=== PATIENT | female | born 1945 | race Caucasian/White ===

== ENCOUNTER 2017-07-24 10:43 | Observation (INO) | payer OTHER ==
[2017-07-24] VITALS (9 sets, daily range): BP systolic 115–218; BP diastolic 54–88; PULSE 73–99; RESP 16–20; TEMP 97.1–98.6; O2SAT 94–100
[~2017-07-24] VITALS: Ht 165.1 cm; Wt 122.0 kg
[~2017-07-24 10:43] MED LIST: CARD120T4 PO; D31000CA PO; HYDR-2768 PO; IBUP800 PO; IRON18TA2 PO; LISI-363 PO; LOMO PO; LOPE2 PO; LORTA5 PO; METF500 PO; POTA-243 PO
[2017-07-24 10:56] LABS: AUTOMATED NEUTROPHIL # 4.2 TH/MM3 (1.8-7.7); BASOPHIL % 0.6 % (0.0-2.0); EOSINOPHIL # 0.1 TH/MM3 (0-0.4); EOSINOPHIL % 1.5 % (0.0-4.0); HEMATOCRIT 36.2 % (35.0-46.0); HEMOGLOBIN 12.2 GM/DL (11.6-15.3); LYMPH % 27.4 % (9.0-44.0); LYMPHOCYTE # 1.8 TH/MM3 (1.0-4.8); MEAN CELL VOLUME 85.2 FL (80.0-100.0); MEAN CORPUSCULAR HEMOGLOBIN 28.8 PG (27.0-34.0); MEAN CORPUSCULAR HGB CONC 33.8 % (32.0-36.0); MEAN PLATELET VOLUME 9.6 FL (7.0-11.0); MONO % 6.8 % (0.0-8.0); MONOCYTE # 0.4 TH/MM3 (0-0.9); NEUT % 63.7 % (16.0-70.0); PLATELET COUNT 255 TH/MM3 (150-450); RED BLOOD COUNT 4.24 MIL/MM3 (4.00-5.30); RED CELL DISTRIBUTION WIDTH 12.8 % (11.6-17.2); WHITE BLOOD COUNT 6.5 TH/MM3 (4.0-11.0)
[2017-07-24 11:02] LABS: CHLORIDE 100 MEQ/L (98-107); SODIUM (NA) 136 MEQ/L (136-145)
[2017-07-24 11:04] LABS: CALCIUM 9.3 MG/DL (8.5-10.1)
[2017-07-24 11:05] LABS: BLOOD UREA NITROGEN 25 MG/DL (7-18); GLUCOSE,RANDOM 132 MG/DL (74-106)
[2017-07-24 11:06] LABS: BICARBONATE 26.2 MEQ/L (21.0-32.0)
--- NOTE | 2017-07-24 11:06 | RADRPT ---
EXAM DATE/TIME: 07/24/2017 10:55 [place] COMPARISON: No previous studies available for comparison. INDICATIONS : Chest pain and shortness of breath MEDICAL HISTORY : Hypertension. Diabetes mellitus type II. Anemia, Irregular heartbeat SURGICAL HISTORY : Cholecystectomy. ENCOUNTER: Initial ACUITY: 2 days PAIN SCORE: 0/10 LOCATION: Bilateral chest FINDINGS: A single view of the chest demonstrates the lungs to be symmetrically aerated without evidence of mas s, infiltrate or effusion. The cardiomediastinal contours are unremarkable. Osseous structures are intact. CONCLUSION: No acute disease. Elio Coleman MD FACR on July 24, 2017 at 11:03 Board Certified Radiologist. This report was verified electronically.
[2017-07-24 11:08] LABS: GLOMERULAR FILTRATION RATE 44 ML/MIN (>89)
[2017-07-24 11:13] LABS: TROPONIN I LESS THAN 0.02 NG/ML (0.02-0.05)
[2017-07-24] MEDS ORDERED: LORazepam 2 MG/ML VIAL IV PUSH SCH ×2 (11:30)
[2017-07-24] MEDS ORDERED: ASPIRIN 81 MG CHEW TAB CHEW ONE ×2 (11:30)
--- NOTE | 2017-07-24 11:34 | PD ---
HPI . Chest pain shortness of breath Chief Complaint: Chest Pain Time Seen by Provider: 11:00 Travel History International Travel<30 days: No Contact w/Intl Traveler<30days: No Traveled to known affect area: No History of Present Illness HPI Patient presents with a chief complaint of chest pain shortness of breath. Symptoms have been persistent but have waxed and waned for the last several days. She states that the symptoms started after the of her older sister. She reports that her sister is due to be today and [place]. She has not noticed any relieving factors. Exacerbating factors include salt and caffeine. When asked to describe the quality of her discomfort she states that she is just "out of breath." She is unable to further characterize her symptoms. She reports the severity of her symptoms as 8/10. Associated symptoms include diarrhea, palpitations, nausea and insomnia PFSH Past Medical History Anemia: Yes Arthritis: Yes (BILATERAL HIPS, knees, hands) Anxiety: Yes Depression: Yes Heart Rhythm Problems: Yes Cancer: No Cardiac Catheterization: No Cardiovascular Problems: Yes (htn on meds) Congestive Heart Failure: No Diabetes: Yes Patient Takes Glucophage: Yes Diminished Hearing: No Endocrine: No Gastrointestinal Disorders: Yes (CHRONIC DIAHREA) GERD: Yes Genitourinary: No Hypertension: Yes Immune Disorder: No Musculoskeletal: Yes Neurologic: No Psychiatric: No Reproductive: No Respiratory: No Immunizations Current: Yes Myocardial Infarction: No Tetanus Vaccination: < 5 Years Influenza Vaccination: Yes ?: Not Menopausal: Yes Past Surgical History Cholecystectomy: Yes (1986) Coronary Artery Bypass Graft: No Other Surgery: Yes Family History Family Myocardial Infarction: Yes Social History Alcohol Use: No Tobacco Use: No Substance Use: No Allergies-Medications (Allergen,Severity, Reaction): Coded Allergies: latex (Unverified Allergy, Severe, 07/24/17) epinephrine (Unverified Allergy, Mild, HEART RACES , 07/24/17) Reported Meds & Prescriptions Reported Meds & Active Scripts Active Reported Aspirin EC (Aspirin) 81 Mg Tabdr 162 Mg PO DAILY Lomotil (Diphenoxylate-Atropine) 2.5-0.025 Mg Tab 2 Tab PO DIRECTED PRN Loperamide (Loperamide HCl) 2 Mg Tablet 2 Mg PO PRN Vitamin D3 (Cholecalciferol) 1,000 Unit Cap 1,000 Units DAILY Diltiazem (Diltiazem HCl) Unknown Strength Tab Unknown Dose PO BID Potassium Chloride ER (Potassium Chloride) 10 Meq Cap 10 Meq PO DAILY Ferrous Fumarate Unknown Strength Tab Unknown Dose PO DAILY Losartan (Losartan Potassium) 100 Mg Tab 100 Mg PO DAILY Metformin (Metformin HCl) 500 Mg Tab 500 Mg PO HS With a meal Review of Systems Except as stated in HPI: all other systems reviewed are Neg General / Constitutional: No: Fever, Chills Eyes: No: Blurred Vision HENT: No: Headaches Cardiovascular: Positive: Chest Pain or Discomfort, Palpitations Respiratory: Positive: Shortness of Breath Gastrointestinal: Positive: Nausea, Diarrhea Psychiatric: Positive: Other (Insomnia) Physical Exam Narrative GENERAL: Obese woman who looks sad. SKIN: warm/dry. Normal color and turgor. HEAD: Normocephalic. Atraumatic. EYES: Pupils equal and round. No scleral icterus. No injection or drainage. ENT: No nasal bleeding or discharge. Mucous membranes pink and moist. NECK: Trachea midline. Full range of motion without pain.. CARDIOVASCULAR: Regular rate and rhythm. Heart sounds are normal. RESPIRATORY: No accessory muscle use. Clear to auscultation. Breath sounds equal bilaterally. GASTROINTESTINAL: Abdomen soft. Nontender. Bowel sounds present. Nondistended. MUSCULOSKELETAL: No obvious deformities. No peripheral edema. NEUROLOGICAL: Awake and alert. No obvious cranial nerve deficits. Motor grossly within normal limits. Normal speech. PSYCHIATRIC: Appropriate mood and affect; insight and judgment normal. Data Data Last Documented VS Vital Signs Date Time Temp Pulse Resp B/P (MAP) Pulse Ox O2 Delivery O2 Flow Rate FiO2 07/24/17 12:09 73 16 115/54 (74) 97 Room Air 07/24/17 11:08 2.00 07/24/17 10:50 98.6 Orders Orders Electrocardiogram (07/24/17 10:45) Complete Blood Count With Diff (07/24/17 10:45) Basic Metabolic Panel (Bmp) (07/24/17 10:45) Ckmb (Isoenzyme) Profile (07/24/17 10:45) Troponin I (07/24/17 10:45) Chest, Single Ap (07/24/17 10:45) Iv Access Insert/Monitor (07/24/17 10:45) Ecg Monitoring (07/24/17 10:45) Oxygen Administration (07/24/17 10:45) Oximetry (07/24/17 10:45) Lorazepam Inj (Ativan Inj) (07/24/17 11:30) Aspirin Chew (Aspirin Chew) (07/24/17 11:30) Aspirin Chew (Aspirin Chew) (07/24/17 11:30) Lorazepam Inj (Ativan Inj) (07/24/17 11:30) Place In Observation (07/24/17 ) Vital Signs (Adult) SIENNA.Q4H (07/24/17 12:18) Activity Bed Rest (07/24/17 12:18) Alley Worker / Telemetry SIENNA.Q8H (07/24/17 12:18) Diet Npo (07/24/17 Lunch) Troponin I (07/24/17 15:30) Labs Laboratory Tests Test 07/24/17 10:50 White Blood Count 6.5 TH/MM3 Red Blood Count 4.24 MIL/MM3 Hemoglobin 12.2 GM/DL Hematocrit 36.2 % Mean Corpuscular Volume 85.2 FL Mean Corpuscular Hemoglobin 28.8 PG Mean Corpuscular Hemoglobin Concent 33.8 % Red Cell Distribution Width 12.8 % Platelet Count 255 TH/MM3 Mean Platelet Volume 9.6 FL Neutrophils (%) (Auto) 63.7 % Lymphocytes (%) (Auto) 27.4 % Monocytes (%) (Auto) 6.8 % Eosinophils (%) (Auto) 1.5 % Basophils (%) (Auto) 0.6 % Neutrophils # (Auto) 4.2 TH/MM3 Lymphocytes # (Auto) 1.8 TH/MM3 Monocytes # (Auto) 0.4 TH/MM3 Eosinophils # (Auto) 0.1 TH/MM3 Basophils # (Auto) 0.0 TH/MM3 CBC Comment DIFF FINAL Differential Comment Blood Urea Nitrogen 25 MG/DL Creatinine 1.20 MG/DL Random Glucose 132 MG/DL Calcium Level 9.3 MG/DL Sodium Level 136 MEQ/L Potassium Level 3.6 MEQ/L Chloride Level 100 MEQ/L Carbon Dioxide Level 26.2 MEQ/L Anion Gap 10 MEQ/L Estimat Glomerular Filtration Rate 44 ML/MIN Total Creatine Kinase 66 U/L Troponin I LESS THAN 0.02 NG/ML MDM Medical Decision Making Medical Screen Exam Complete: Yes Emergency Medical Condition: Yes Medical Record Reviewed: Yes (PMH of DM, HTN, goiter, obesity) Interpretation(s) EKG shows a normal sinus rhythm with no acute ischemic changes. EKG is unchanged from previous. Differential Diagnosis Differential diagnosis of chest pain includes but is not limited to musculoskeletal pain, pulmonary embolism, acute coronary syndrome, pneumonia, pleurisy Differential diagnosis of dyspnea includes but is not limited to congestive heart failure, pneumonia, wheezing, pneumothorax, pulmonary embolism Narrative Course This patient presents with chest pain shortness of breath which have waxed and waned since the of her sister several days ago. Associated symptoms include palpitations, nausea, insomnia and loose stools. I suspect that her symptoms are secondary to mourning. Cardiac workup is in process. Last Impressions Chest X-Ray 07/24/17 1045 Signed Impressions: Service Date/Time: Monday, July 24, 2017 10:55 - CONCLUSION: No acute disease. Elio Coleman MD FACR The chest x-ray was independently reviewed by me. CBC & BMP Diagram 07/24/17 10:50 Calcium Level 9.3 Troponin less than 0.02. I have ordered aspirin and Ativan and will reassess. Patient states that she is sleepy and relaxed feeling that that she continues to have chest pain, back pain and shortness of breath. I have offered admission to the chest pain center.. She is interested in pursuing that. Physician Communication Physician Communication Dr. Galarza. The patient has been NPO today so will be stressed today. Diagnosis Primary Impression: Chest pain Qualified Codes: R07.9 - Chest pain, unspecified Additional Impressions: Dyspnea Qualified Codes: R06.00 - Dyspnea, unspecified Mourning Admitting Information Admitting Physician Requests: Observation Condition: Stable Natividad Banda MD Jul 24, 2017 11:34
[2017-07-24] MEDS ORDERED: CHOL10008 (12:03)
[2017-07-24] MEDS ORDERED: DILT120T PO (12:03)
[2017-07-24] MEDS ORDERED: FERR324T8 PO (12:03)
[2017-07-24] MEDS ORDERED: LOSA100T PO (12:03)
[2017-07-24] MEDS ORDERED: LOPE2TAB21 PO (12:03)
[2017-07-24] MEDS ORDERED: LOMO2.5T PO (12:03)
[2017-07-24] MEDS ORDERED: METF500T PO (12:03)
[2017-07-24] MEDS ORDERED: POTA10CA PO (12:03)
[2017-07-24] MEDS ORDERED: ASPI81TA23 PO (12:08)
[2017-07-24] MEDS ORDERED: TEMAZEPAM 15 MG CAP PO PRN (13:45)
[2017-07-24] MEDS ORDERED: NITROGLYCERIN 0.4 MG SL 25 TABS/BTL SL PRN (13:45)
[2017-07-24] MEDS ORDERED: ACETAMINOPHEN 500 MG CPLT PO PRN (13:45)
[2017-07-24] MEDS ORDERED: SODIUM CHLORIDE 0.9% FLUSH 10 ML FLUSH IV FLUSH PRN (13:45)
[2017-07-24] MEDS ORDERED: ACETAMINOPHEN/HYDROcodone 325 MG/7.5 MG TAB PO PRN (13:45)
[2017-07-24] MEDS ORDERED: ONDANSETRON HCL 4 MG/2 ML VIAL IV PUSH PRN (13:45)
[2017-07-24] MEDS ORDERED: MORPHINE SULFATE 2 MG/ML SYRINGE IV PUSH PRN (14:15)
[2017-07-24 14:44] LABS: TROPONIN I LESS THAN 0.02 NG/ML (0.02-0.05)
[2017-07-24] MEDS ORDERED: GLUCAGON 1 MG/ML VIAL OTHER PRN (14:45)
[2017-07-24] MEDS ORDERED: DEXTROSE 50% IN WATER 50 ML VIAL(D50) IV PUSH PRN (14:45)
--- NOTE | 2017-07-24 14:57 | HHI.HP ---
[facility] Aniyah Raman D.O. Admission Diagnosis chest pain Diagnoses: (1) Chest pain Diagnosis: Principal Chief Complaint: Chest pain Travel History International Travel<30 Days: No Contact w/Intl Traveler <30 Da: No Traveled to Known Affected Are: No History of Present Illness 72-year-old female with history of hypertension, diabetes, anemia, gastroesophageal reflux who presented the hospital because of atypical chest pain which started approximately 1 week ago. She states that is intermittent in nature lasting for approximately 30 minutes at a time. She states that the pain is proximally 7/10 on a pain scale and does take her breath away. She states that has been worsening whenever her sister 4 days ago. The pain is located on left side of her chest and radiates into her back. There was associated nausea, lightheadedness. She indicates that is nonexertional, it is better with movement. The pain has not gotten any better and she indicates that she had a difficult time catching her breath today she came to emergency department for evaluation. Initial workup was unremarkable and ER physician recommended the patient be observed in the chest pain center. Patient has had previous cardiac workup before she did undergo myocardial perfusion study approximately 6-1/2 years ago which was unremarkable for any ischemia. Currently the patient is asymptomatic. He did have green tea this morning which we are unable to perform any testing today. Review of Systems Constitutional: COMPLAINS OF: Dizziness Respiratory: COMPLAINS OF: Shortness of breath Cardiovascular: COMPLAINS OF: Chest pain Gastrointestinal: COMPLAINS OF: Nausea Except as stated in HPI: all other systems reviewed are Neg Past Family Social History Past Medical History Hypertension Diabetes Anemia Gastroesophageal reflux Past Surgical History Cholecystectomy Reported Medications Reported Meds & Active Scripts Active Reported Aspirin EC (Aspirin) 81 Mg Tabdr 162 Mg PO DAILY Lomotil (Diphenoxylate-Atropine) 2.5-0.025 Mg Tab 2 Tab PO DIRECTED PRN Loperamide (Loperamide HCl) 2 Mg Tablet 2 Mg PO PRN Vitamin D3 (Cholecalciferol) 1,000 Unit Cap 1,000 Units DAILY Diltiazem (Diltiazem HCl) Unknown Strength Tab Unknown Dose PO BID Potassium Chloride ER (Potassium Chloride) 10 Meq Cap 10 Meq PO DAILY Ferrous Fumarate Unknown Strength Tab Unknown Dose PO DAILY Losartan (Losartan Potassium) 100 Mg Tab 100 Mg PO DAILY Metformin (Metformin HCl) 500 Mg Tab 500 Mg PO HS With a meal Allergies: Coded Allergies: latex (Unverified Allergy, Severe, 07/24/17) epinephrine (Unverified Allergy, Mild, HEART RACES , 07/24/17) Family History Reviewed and significant for mother at 80 years old with heart disease and diabetes, father at age 69 from myocardial infarction, sister at age 78 from heart disease and stroke Social History Patient denies any tobacco, alcohol or illicit drug Physical Exam Vital Signs Vital Signs Date Time Temp Pulse Resp B/P (MAP) Pulse Ox O2 Delivery O2 Flow Rate FiO2 07/24/17 14:21 94 21 07/24/17 13:10 07/24/17 12:09 73 16 115/54 (74) 97 Room Air 07/24/17 11:08 100 Nasal Cannula 2.00 07/24/17 11:03 75 18 96 Room Air 07/24/17 11:03 16 97 Room Air 07/24/17 10:50 98.6 75 16 218/88 (131) 96 Physical Exam GENERAL: Well-developed, well-nourished, in no acute distress. alert and orientated HEENT: Head is normocephalic without any lesions or masses noted. Facial features are symmetric. Eyes: Pupils equal round reactive to light. Extraocular muscles are intact. Conjunctivae were clear. Oropharyngeal: Pharynx without any erythema edema. Tongue is midline without deviation. Buccal mucosa is moist without any masses or lesions NECK: Supple without any masses. Trachea midline no deviation. No JVD, no bruits are appreciated CARDIAC: Regular rhythm, regular rate. S1/S2 are heard. No murmurs gallops or rubs. LUNGS: Clear to auscultation bilaterally. No wheeze, rhonchi or rales. No use of accessory muscles on inspiration or expiration. ABDOMEN: Soft, nontender. Nondistended. Bowel sounds heard in all 4 quadrants. No organomegaly or masses. Negative rebound, negative guarding EXTREMITIES: No edema, pulses are equal bilaterally. No cyanosis or clubbing NEUROLOGY: Mood and affect appear appropriate. Cranial nerves II through XII grossly intact. Muscle strength 5/5 in upper and lower extremities bilaterally. Deep tendon reflexes are 2+ in upper and lower extremities bilaterally. Laboratory Laboratory Tests Test 07/24/17 10:50 07/24/17 13:50 White Blood Count 6.5 Red Blood Count 4.24 Hemoglobin 12.2 Hematocrit 36.2 Mean Corpuscular Volume 85.2 Mean Corpuscular Hemoglobin 28.8 Mean Corpuscular Hemoglobin Concent 33.8 Red Cell Distribution Width 12.8 Platelet Count 255 Mean Platelet Volume 9.6 Neutrophils (%) (Auto) 63.7 Lymphocytes (%) (Auto) 27.4 Monocytes (%) (Auto) 6.8 Eosinophils (%) (Auto) 1.5 Basophils (%) (Auto) 0.6 Neutrophils # (Auto) 4.2 Lymphocytes # (Auto) 1.8 Monocytes # (Auto) 0.4 Eosinophils # (Auto) 0.1 Basophils # (Auto) 0.0 CBC Comment DIFF FINAL Differential Comment Blood Urea Nitrogen 25 Creatinine 1.20 Random Glucose 132 Calcium Level 9.3 Sodium Level 136 Potassium Level 3.6 Chloride Level 100 Carbon Dioxide Level 26.2 Anion Gap 10 Estimat Glomerular Filtration Rate 44 Total Creatine Kinase 66 Troponin I LESS THAN 0.02 Result Diagram: 07/24/17 1050 07/24/17 1050 Imaging Last Impressions Chest X-Ray 07/24/17 1045 Signed Impressions: Service Date/Time: Monday, July 24, 2017 10:55 - CONCLUSION: No acute disease. Elio Coleman MD FACR Caprini VTE Risk Assessment Caprini VTE Risk Assessment: Mod/High Risk (score >= 2) Caprini Risk Assessment Model Point Value = 1 Point Value = 2 Point Value = 3 Point Value = 5 Age 41-60 Minor surgery BMI > 25 kg/m2 Swollen legs Varicose veins or History of unexplained or recurrent spontaneous Oral contraceptives or hormone replacement Sepsis (< 1 month) Serious lung disease, including pneumonia (< 1 month) Abnormal pulmonary function Acute myocardial infarction Congestive heart failure (< 1 month) History of inflammatory bowel disease Medical patient at bed rest Age 61-74 Arthroscopic surgery Major open surgery (> 45 min) Laparoscopic surgery (> 45 min) Malignancy Confined to bed (> 72 hours) Immobilizing plaster cast Central venous access Age >= 75 History of VTE Family history of VTE Factor V Leiden Prothrombin [id number] Lupus anticoagulant Anticardiolipin antibodies Elevated serum homocysteine Heparin-induced thrombocytopenia Other congenital or acquired thrombophilia Stroke (< 1 month) Elective arthroplasty Hip, pelvis, or leg fracture Acute spinal cord injury (< 1 month) Prophylaxis Regimen Total Risk Factor Score Risk Level Prophylaxis Regimen 0-1 Low Early ambulation 2 Moderate Order ONE of the following: *Sequential Compression Device (SCD) *Heparin 5000 units SQ BID 3-4 Higher Order ONE of the following medications: *Heparin 5000 units SQ TID *Enoxaparin/Lovenox 40 mg SQ daily (WT < 150 kg, CrCl > 30 mL/min) *Enoxaparin/Lovenox 30 mg SQ daily (WT < 150 kg, CrCl > 10-29 mL/min) *Enoxaparin/Lovenox 30 mg SQ BID (WT < 150 kg, CrCl > 30 mL/min) AND/OR *Sequential Compression Device (SCD) 5 or more Highest Order ONE of the following medications: *Heparin 5000 units SQ TID (Preferred with Epidurals) *Enoxaparin/Lovenox 40 mg SQ daily (WT < 150 kg, CrCl > 30 mL/min) *Enoxaparin/Lovenox 30 mg SQ daily (WT < 150 kg, CrCl > 10-29 mL/min) *Enoxaparin/Lovenox 30 mg SQ BID (WT < 150 kg, CrCl > 30 mL/min) AND *Sequential Compression Device (SCD) Assessment and Plan Assessment and Plan Chest pain, atypical Patient with increased risk factors include age, body habitus, hypertension, diabetes, family history of heart disease Thus far patient had been ruled out for acute coronary event with serial cardiac enzymes that are negative EKG that was reviewed by myself did show sinus rhythm with first-degree AV block Will pursue myocardial perfusion study to rule out any underlying ischemia Continue aspirin, nitroglycerin as needed, morphine for pain control Acute renal failure superimposed on chronic kidney disease stage II Continue IV fluids Monitor renal function Hypertension Continue home medications Diabetes Accu-Cheks with sliding scale insulin DVT prevention Sequential compression devices Problem Qualifiers (1) Chest pain: Qualified Codes: R07.9 - Chest pain, unspecified Eddi Galvan Jul 24, 2017 14:57
[2017-07-24] MEDS: NS + KCL 20 MEQ INJ 1,000 ML IV SCH (16:09)
[2017-07-24] MEDS: INSULIN ASPART SUPPLEMENTAL SCALE SQ SCH ×2 (17:00→21:00)
[2017-07-24 17:25] LABS: TROPONIN I LESS THAN 0.02 NG/ML (0.02-0.05)
--- NOTE | 2017-07-24 20:42 | EKG ---
Date Performed: 07/24/2017 Time Performed: 10:49:41 PTAGE: 72 years EKG: Sinus rhythm WITH FIRST DEGREE AV BLOCK BORDERLINE LEFT AXIS DEVIATION ABNORMAL ECG PREVIOUS TRACING : 07/28/2010 16.01 Since the previous tracing, no significant change noted DOCTOR: Connor Ruiz Interpretating Date/Time 07/24/2017 20:41:03
[2017-07-24] MEDS: SODIUM CHLORIDE 0.9% FLUSH 10 ML FLUSH IV FLUSH SCH (20:56)
[2017-07-25] VITALS: BP 156/78; PULSE 93; RESP 18; TEMP 98.3; O2SAT 96
[2017-07-25] MEDS: NS + KCL 20 MEQ INJ 1,000 ML IV SCH ×2 (02:55→04:21)
[2017-07-25 04:00] VITALS: BP 142/72; PULSE 77; RESP 16; TEMP 97; O2SAT 94
[2017-07-25 06:29] LABS: BICARBONATE 29.1 MEQ/L (21.0-32.0); CALCIUM 8.5 MG/DL (8.5-10.1); CREATININE 0.82 MG/DL (0.50-1.00)
--- NOTE | 2017-07-25 07:21 | HHI.PR ---
Subjective Remarks Patient seen and examined today for follow-up on chest pain. Patient states that she has not had any recurrent chest pain. Her blood pressures improved since admission. Patient remains afebrile. Discussed with her pursuing a stress test to rule out any underlying ischemia. Patient is in agreement we will move forward with the plan. Objective Vitals Vital Signs Date Time Temp Pulse Resp B/P (MAP) Pulse Ox O2 Delivery O2 Flow Rate FiO2 07/25/17 04:00 97.0 77 16 142/72 (95) 94 07/25/17 00:00 98.3 93 18 156/78 (104) 96 07/24/17 20:35 100 21 07/24/17 20:07 81 07/24/17 20:00 97.1 89 20 148/68 (94) 98 07/24/17 16:00 98.1 80 17 146/70 (95) 97 07/24/17 14:21 94 21 07/24/17 14:00 99 07/24/17 13:10 07/24/17 12:09 73 16 115/54 (74) 97 Room Air 07/24/17 11:08 100 Nasal Cannula 2.00 07/24/17 11:03 75 18 96 Room Air 07/24/17 11:03 16 97 Room Air 07/24/17 10:50 98.6 75 16 218/88 (131) 96 I/O 07/24/17 07/24/17 07/24/17 07/25/17 07/25/17 07/25/17 07:00 15:00 23:00 07:00 15:00 23:00 Intake Total 1569 ml Balance 1569 ml Intake Oral 480 ml IV Total 1089 ml # Voids 1 4 # Bowel Movements 3 Result Diagram: 07/24/17 1050 07/25/17 0530 Objective Remarks GENERAL: Well-developed, well-nourished, in no acute distress. alert and orientated HEENT: Head is normocephalic without any lesions or masses noted. Facial features are symmetric. Eyes: Extraocular muscles are intact. Conjunctivae were clear. NECK: Supple without any masses. Trachea midline no deviation. No JVD, CARDIAC: Regular rhythm, regular rate. S1/S2 are heard. No murmurs gallops or rubs. LUNGS: Clear to auscultation bilaterally. No wheeze, rhonchi or rales. No use of accessory muscles on inspiration or expiration. ABDOMEN: Soft, nontender. Nondistended. Bowel sounds heard in all 4 quadrants. No organomegaly or masses. Negative rebound, negative guarding EXTREMITIES: No edema, pulses are equal bilaterally. No cyanosis or clubbing NEUROLOGY: Mood and affect appear appropriate. Cranial nerves II through XII grossly intact. Moving all extremities, speech is clear Urinary Catheter: No Vascular Central Line Catheter: No A/P Assessment and Plan Chest pain, atypical Patient with increased risk factors include age, body habitus, hypertension, diabetes, family history of heart disease Patient has been ruled out for acute coronary event with serial cardiac enzymes that have remained negative. Serial EKGs were performed and reviewed by myself that does not indicate any acute changes Patient is deferring any further workup for stress test. Continue aspirin, nitroglycerin as needed, morphine for pain control I did diet counselor patient extensively that she has been ruled out for acute coronary event, however unable to determine if she has any underlying ischemia. I did discuss all the risk and benefits of the procedure. Patient is still deferring to have the procedure done at this time. I notified her that she needs to follow-up with her primary call and think of other alternatives to evaluate for ischemia or any coronary artery disease. Patient says that she will follow-up with her primary medical doctor upon discharge. Acute renal failure superimposed on chronic kidney disease stage II, improved Discontinue IV fluids Monitor renal function Hypertension Continue home medications Diabetes Accu-Cheks with sliding scale insulin DVT prevention Sequential compression devices Discharge Planning Discharge home in stable condition Activity: Ad davide. Diet: Healthy heart diet Medication per medication reconciliation Follow-up with primary medical doctor in 1 week Eddi Galvan Jul 25, 2017 07:21
[2017-07-25 08:00] VITALS: BP 149/72; PULSE 72; RESP 14; TEMP 97.4; O2SAT 96
[2017-07-25] MEDS: INSULIN ASPART SUPPLEMENTAL SCALE SQ SCH (08:00)
[2017-07-25 08:01] VITALS: PULSE 75
[2017-07-25] MEDS ORDERED: LOSARTAN 50 MG TAB PO SCH (09:00)
[2017-07-25] MEDS ORDERED: ASPIRIN 325 MG TAB PO SCH (09:00)
[2017-07-25] MEDS ORDERED: BUMETANIDE 1 MG TAB PO SCH (09:00)
[2017-07-25] MEDS ORDERED: BUME1TAB PO (09:00)
--- NOTE | 2017-07-25 09:01 | HHI.DCPOC ---
Discharge Care Plan Diagnosis: (1) Chest pain Goals to Promote Your Health * To prevent worsening of your condition and complications * To maintain your health at the optimal level Directions to Meet Your Goals Take your medications as prescribed Follow your dietary instruction Follow activity as directed Keep your appointments as scheduled Take your immunizations and boosters as scheduled If your symptoms worsen call your PCP, if no PCP go to Urgent Care Center or Emergency Room Smoking is Dangerous to Your Health. Avoid second hand smoke Call the 24-hour hour crisis hotline for domestic abuse at Eddi Galvan Jul 25, 2017 09:01
[2017-07-25] MEDS: SODIUM CHLORIDE 0.9% FLUSH 10 ML FLUSH IV FLUSH SCH (09:08)
[2017-07-25] MEDS ORDERED: POTASSIUM CHLORIDE 10 MEQ CONTROLLED RELEASE TAB PO SCH (09:45)
[2017-07-25] MEDS ORDERED: DILTIAZEM-CD 120 MG CAP ER PO SCH (09:45)
[2017-07-25 12:58] LABS: CHOLESTEROL/ HDL RATIO 2.37 RATIO; HDL CHOLESTEROL 68.3 MG/DL (40.0-60.0)
--- NOTE | 2017-07-25 18:48 | EKG ---
Date Performed: 07/24/2017 Time Performed: 16:53:02 PTAGE: 72 years EKG: Sinus rhythm WITH OCCASIONAL SUPRAVENTRICULAR PREMATURE COMPLEXES BORDERLINE LEFT AXIS DEVIATION Since the previo us tracing, no significant change noted BORDERLINE ECG PREVIOUS TRACING : 07/24/2017 13.57 DOCTOR: Pa Acevedo Interpretating Date/Time 07/25/2017 18:45:26
--- NOTE | 2017-07-25 18:48 | EKG ---
Date Performed: 07/24/2017 Time Performed: 13:57:43 PTAGE: 72 years EKG: Sinus rhythm BORDERLINE LEFT AXIS DEVIATION Since the previous tracing, no significant change noted BORDERLINE EC G PREVIOUS TRACING : 07/24/2017 10.49 DOCTOR: Pa Acevedo Interpretating Date/Time 07/25/2017 18:45:19
== END 2017-07-25 10:29 | disposition home or self-care (01) ==
LOC: PHED 10:43 → PHEDA 12:24 → PH3A 13:16
PROVIDERS: ADMIT Hospitalist; ATTEND Hospitalist
DX: R07.89 Other chest pain (principal); N17.9 Acute kidney failure, unspecified; I44.0 Atrioventricular block, first degree; R11.0 Nausea; R42 Dizziness and giddiness; R06.02 Shortness of breath; I12.9 Hypertensive chronic kidney disease with stage 1 through stage 4 chronic kidney disease, or unspecified chronic kidney disease; E11.22 Type 2 diabetes mellitus with diabetic chronic kidney disease; N18.2 Chronic kidney disease, stage 2 (mild); K21.9 Gastro-esophageal reflux disease without esophagitis; I49.3 Ventricular premature depolarization; R94.31 Abnormal electrocardiogram [ECG] [EKG]; M16.0 Bilateral primary osteoarthritis of hip; M17.0 Bilateral primary osteoarthritis of knee; M19.042 Primary osteoarthritis, left hand; M19.041 Primary osteoarthritis, right hand; F41.9 Anxiety disorder, unspecified; F32.9 Major depressive disorder, single episode, unspecified; Z79.899 Other long term (current) drug therapy; Z79.82 Long term (current) use of aspirin; Z79.84 Long term (current) use of oral hypoglycemic drugs
CPT/HCPCS: 71045; 80048; 80061; 82550; 82948; 84484; 85025; 93005; 96361; 96374; 99285; G0378; J2060; J3480